=== PATIENT | male | born 1980 | race Caucasian/White ===

== ENCOUNTER 2019-05-01 04:10 | Emergency (ER) | payer SELFPAY ==
[~2019-05-01] VITALS: Ht 170.2 cm; Wt 59.5 kg
[2019-05-01] MEDS ORDERED: LIDOCAINE 1% 10 ML VIAL INJ ONE (05:30)
[2019-05-01] MEDS ORDERED: AZITHROMYCIN 250 MG TABLET PO ONE (05:30)
[2019-05-01] MEDS ORDERED: CefTRIAXone SODIUM 1 GM/VIAL IM ONE ×2 (05:30)
[2019-05-01] MEDS ORDERED: POVIDONE-IODINE 10% 15 ML SOLUTION UD TP ONE (05:30)
[2019-05-01] MEDS ORDERED: LIDOCAINE/PF 1% 2 ML VIAL IM ONE (05:30)
[2019-05-01 06:06] VITALS: BP 112/76
== END 2019-05-01 06:15 | disposition home or self-care (01) ==
LOC: EMS 04:11
DX: L02.414 Cutaneous abscess of left upper limb (principal); L02.415 Cutaneous abscess of right lower limb; N34.2 Other urethritis; F15.90 Other stimulant use, unspecified, uncomplicated; F17.210 Nicotine dependence, cigarettes, uncomplicated
CPT/HCPCS: 10061; 96372; 99284; J0696; J3490 ×2

== ENCOUNTER 2019-07-14 10:15 | Emergency (ER) | payer SELFPAY ==
[~2019-07-14] VITALS: Ht 170.2 cm; Wt 65.9 kg
[2019-07-14] MEDS ORDERED: HYDROCORTISONE 1% 30 GM CREAM TP ONE (11:00)
[2019-07-14] MEDS ORDERED: AZITHROMYCIN 250 MG TABLET PO ONE (11:00)
[2019-07-14] MEDS ORDERED: LIDOCAINE/PF 1% 2 ML VIAL IM ONE (11:00)
[2019-07-14] MEDS ORDERED: CefTRIAXone SODIUM 1 GM/VIAL IM ONE (11:00)
[2019-07-14 11:20] VITALS: BP 127/83
== END 2019-07-14 12:05 | disposition home or self-care (01) ==
LOC: EDUNIT# 10:15 → EMS 10:18
DX: N48.1 Balanitis (principal); N34.2 Other urethritis; F17.210 Nicotine dependence, cigarettes, uncomplicated; F19.90 Other psychoactive substance use, unspecified, uncomplicated
CPT/HCPCS: 96372; 99283; J0696; J3490

== ENCOUNTER 2019-11-19 19:41 | Emergency (ER) | payer SELFPAY ==
[~2019-11-19] VITALS: Ht 175.3 cm; Wt 63.6 kg
[2019-11-19 21:00] VITALS: BP 124/77
== END 2019-11-19 21:57 | disposition home or self-care (01) ==
LOC: EMS 19:50
DX: L02.415 Cutaneous abscess of right lower limb (principal); F15.90 Other stimulant use, unspecified, uncomplicated; F17.210 Nicotine dependence, cigarettes, uncomplicated
CPT/HCPCS: 10060

== ENCOUNTER 2019-12-19 21:01 | Emergency (ER) | payer SELFPAY ==
[~2019-12-19] VITALS: Ht 172.7 cm; Wt 68.2 kg
[2019-12-19] MEDS ORDERED: LIDOCAINE 1% 10 ML VIAL INJ ONE (22:30)
[2019-12-19] MEDS ORDERED: VANCOMYCIN HCL 1 GM/D5% WATER 200 ML IV ONE (22:30)
[2019-12-19 23:18] LABS: BASOPHILS % (AUTO) 0.4 % (0.0-2.0); EOSINOPHILS % (AUTO) 0.4 % (1.0-6.0); HEMATOCRIT 41.8 % (41-53); LYMPHOCYTES # (AUTO) 1.4 K/uL (1.0-4.8); LYMPHOCYTES % (AUTO) 10.4 % (22.0-44.0); MEAN CORPUSCULAR HEMOGLOBIN 30.5 pg (26.0-34.0); MEAN CORPUSCULAR HGB CONC 33.5 G/dL (31.0-37.0); MEAN CORPUSCULAR VOLUME 91 fL (80-100); MONOCYTES # (AUTO) 1.2 K/uL (0.1-1.0); NEUTROPHILS # (AUTO) 10.5 K/uL (1.8-7.7); NEUTROPHILS % (AUTO) 79.8 % (40.0-70.0); PLATELET COUNT (AUTO) 229 K/uL (150-450); RED BLOOD CELL COUNT(AUTO) 4.58 MIL/uL (4.50-5.90); RED CELL DISTRIBUTION WIDTH 13.2 % (11.5-14.5)
[2019-12-19] MEDS ORDERED: IBUPROFEN 600 MG TABLET PO ONE (23:30)
[2019-12-19] MEDS ORDERED: DOXYCYCLINE HYCLATE 100 MG CAPSULE PO ONE (23:30)
[2019-12-19] MEDS ORDERED: ACETAMINOPHEN 500 MG TABLET PO ONE (23:30)
[2019-12-19 23:33] LABS: ANION GAP 7 mmol/L (8-16); CARBON DIOXIDE 29 mmol/L (22-29); CHLORIDE 101 mmol/L (98-107); GLOMERULAR FILTR. RATE CALC > 60 mL/min (>60); GLUCOSE,RANDOM 103 mg/dL (70-110); POTASSIUM 3.3 mmol/L (3.5-5.1); SODIUM SERUM 137 mmol/L (136-145); UREA NITROGEN, BLOOD 9 mg/dL (7-18)
[2019-12-19 23:40] LABS: ALANINE AMINOTRANSFERASE 23 U/L (12-78); ALBUMIN 3.6 g/dL (3.4-5.0); ALKALINE PHOSPHATASE 78 U/L (46-116); ASPARTATE AMINOTRANSFERASE 18 U/L (15-37); BILIRUBIN,TOTAL 0.7 mg/dL (0.1-1.0); TOTAL PROTEIN, SERUM 7.1 g/dL (6.4-8.2)
[2019-12-20 01:49] VITALS: BP 129/60
== END 2019-12-20 02:32 | disposition home or self-care (01) ==
LOC: EMS 21:01
DX: L03.113 Cellulitis of right upper limb (principal); F17.210 Nicotine dependence, cigarettes, uncomplicated; F19.90 Other psychoactive substance use, unspecified, uncomplicated
CPT/HCPCS: 10060; 36415; 80053; 85025; 87040; 87070; 96365; 99284; 99406; J3370; J3490; 87205

== ENCOUNTER 2020-05-16 11:32 | Emergency (ER) | payer MEDICAID ==
[~2020-05-16] VITALS: Ht 182.9 cm; Wt 79.5 kg
[2020-05-16] MEDS ORDERED: AZITHROMYCIN 500 MG TABLET PO ONE (14:15)
[2020-05-16] MEDS ORDERED: PENICILLIN G BENZATHINE LA 2,400,000 UNITS/4 ML SYRINGE IM ONE (14:15)
[2020-05-16] MEDS ORDERED: DOXYCYCLINE HYCLATE 100 MG TABLET PO ONE (14:15)
[2020-05-16 15:48] VITALS: BP 125/70
[2020-05-17 06:08] LABS: RPR QUANT. (TITER) 1:32 (NonRea<1:1)
== END 2020-05-16 15:50 | disposition home or self-care (01) ==
LOC: EMS 11:36
DX: L03.116 Cellulitis of left lower limb (principal); F17.210 Nicotine dependence, cigarettes, uncomplicated; F15.90 Other stimulant use, unspecified, uncomplicated
CPT/HCPCS: 36415; 86592; 86593; 86780; 96372; 99283; J0561

== ENCOUNTER 2020-12-04 10:39 | Emergency (ER) | payer MEDICAID ==
[~2020-12-04] VITALS: Ht 170.2 cm; Wt 56.8 kg
[2020-12-04 13:29] LABS: BASOPHILS % (AUTO) 0.4 % (0.0-2.0); HEMATOCRIT 47.6 % (41-53); HEMOGLOBIN 16.4 g/dL (13.5-17.5); LYMPHOCYTES # (AUTO) 2.5 K/uL (1.0-4.8); LYMPHOCYTES % (AUTO) 31.5 % (22.0-44.0); MEAN CORPUSCULAR HEMOGLOBIN 31.9 pg (26.0-34.0); MEAN CORPUSCULAR HGB CONC 34.4 G/dL (31.0-37.0); MEAN CORPUSCULAR VOLUME 93 fL (80-100); MONOCYTES # (AUTO) 0.9 K/uL (0.1-1.0); MONOCYTES % (AUTO) 11.2 % (2.0-9.0); NEUTROPHILS # (AUTO) 4.4 K/uL (1.8-7.7); NEUTROPHILS % (AUTO) 55.9 % (40.0-70.0); PLATELET COUNT (AUTO) 196 K/uL (150-450); RED BLOOD CELL COUNT(AUTO) 5.14 MIL/uL (4.50-5.90); RED CELL DISTRIBUTION WIDTH 12.9 % (11.5-14.5)
[2020-12-04 13:47] LABS: ANION GAP 10 mmol/L (8-16); CALCIUM, TOTAL 8.8 mg/dL (8.8-10.5); CARBON DIOXIDE 34 mmol/L (22-29); CHLORIDE 99 mmol/L (98-107); CREATININE 0.83 mg/dL (0.60-1.30); GLOMERULAR FILTR. RATE CALC > 60 mL/min (>60); GLUCOSE,RANDOM 78 mg/dL (70-110); POTASSIUM 3.3 mmol/L (3.5-5.1); SODIUM SERUM 143 mmol/L (136-145); UREA NITROGEN, BLOOD 23 mg/dL (7-18)
[2020-12-04 14:13] LABS: ALANINE AMINOTRANSFERASE 30 U/L (12-78); ALBUMIN 4.3 g/dL (3.4-5.0); ALKALINE PHOSPHATASE 58 U/L (46-116); ASPARTATE AMINOTRANSFERASE 37 U/L (15-37); BILIRUBIN,TOTAL 1.2 mg/dL (0.1-1.0); CREATINE KINASE, TOTAL ONLY 658 U/L (39-308); TOTAL PROTEIN, SERUM 7.1 g/dL (6.4-8.2)
[2020-12-04 14:44] LABS: COVID AG,FIA SOURCE NASAL SWAB
[2020-12-04 17:17] VITALS: BP 93/63
== END 2020-12-04 17:19 | disposition home or self-care (01) ==
LOC: EMS 11:55
DX: F32.9 Major depressive disorder, single episode, unspecified (principal); M79.10 Myalgia, unspecified site; R05 Cough; F17.210 Nicotine dependence, cigarettes, uncomplicated; F19.90 Other psychoactive substance use, unspecified, uncomplicated; Z20.822 Contact with and (suspected) exposure to COVID-19
CPT/HCPCS: 36415; 80053; 82550; 85025; 87426; 99283; G0480

== ENCOUNTER 2020-12-24 07:59 | Emergency (ER) | payer MEDICAID ==
[~2020-12-24] VITALS: Ht 170.2 cm; Wt 56.8 kg
[~2020-12-24 07:59] MED LIST: BACTDSB PO
[2020-12-24 09:04] LABS: COVID AG,FIA SOURCE NASOPHARYNGEAL
[2020-12-24 10:34] VITALS: BP 122/71
== END 2020-12-24 10:36 | disposition home or self-care (01) ==
LOC: EMS 08:01
DX: Z20.822 Contact with and (suspected) exposure to COVID-19 (principal); F17.210 Nicotine dependence, cigarettes, uncomplicated; F19.90 Other psychoactive substance use, unspecified, uncomplicated
CPT/HCPCS: 87426; 99283; U0003

== ENCOUNTER 2022-01-01 08:38 | Emergency (ER) | payer MEDICAID ==
[~2022-01-01] VITALS: Ht 177.8 cm; Wt 68.2 kg
[2022-01-01 10:07] VITALS: BP 118/73
[2022-01-01] MEDS ORDERED: DOXY-354 PO (11:46)
== END 2022-01-01 11:55 | disposition home or self-care (01) ==
LOC: EMS 08:38
DX: L02.411 Cutaneous abscess of right axilla (principal); Z86.14 Personal history of Methicillin resistant Staphylococcus aureus infection; Z87.2 Personal history of diseases of the skin and subcutaneous tissue
CPT/HCPCS: 99283; Z7502

== ENCOUNTER 2022-08-06 19:31 | Emergency (ER) | payer MEDICAID ==
[~2022-08-06] VITALS: Ht 170.2 cm; Wt 68.2 kg
[~2022-08-06 19:31] MED LIST changes: +DOXY-354 PO
[2022-08-06 19:33] VITALS: BP 115/71
[2022-08-06 21:41] LABS: COVID AG,FIA SOURCE NASOPHARYNGEAL
[2022-08-06 22:14] LABS: INFLUENZA TYPE A NEGATIVE FOR TYPE A (NEGATIVE); INFLUENZA TYPE B NEGATIVE FOR TYPE B (NEGATIVE)
== END 2022-08-06 22:32 | disposition home or self-care (01) ==
LOC: EMS 19:38
DX: J06.9 Acute upper respiratory infection, unspecified (principal); Z20.822 Contact with and (suspected) exposure to COVID-19
CPT/HCPCS: 87804; 99283

== ENCOUNTER 2022-08-13 20:47 | Emergency (ER) | payer MEDICAID ==
[~2022-08-13] VITALS: Ht 182.9 cm; Wt 180.0 kg
[2022-08-13 21:27] VITALS: BP 126/80
[2022-08-13] MEDS ORDERED: DOXY-354 PO (21:33)
[2022-08-13] MEDS ORDERED: DOXYCYCLINE HYCLATE 100 MG TABLET PO ONE (21:45)
== END 2022-08-13 22:17 | disposition home or self-care (01) ==
LOC: EMS 20:47
DX: L03.012 Cellulitis of left finger (principal)
CPT/HCPCS: 99283

== ENCOUNTER 2023-03-24 14:11 | Emergency (ER) | payer SELFPAY ==
[~2023-03-24] VITALS: Ht 175.3 cm; Wt 75.0 kg
[~2023-03-24 14:11] MED LIST changes: -BACTDSB PO
[2023-03-24 14:22] VITALS: BP 119/59; PULSE 88; RESP 18; TEMP 98
[2023-03-24] MEDS ORDERED: IBUP-1554 PO (17:19)
[2023-03-24] MEDS ORDERED: CEPH-558 PO (17:19)
[2023-03-24] MEDS ORDERED: DOXY-354 PO (17:19)
[2023-03-24] MEDS ORDERED: LIDOCAINE 1% 10 ML VIAL SQ ONE (17:30)
== END 2023-03-24 17:34 | disposition home or self-care (01) ==
LOC: EMS 14:15
DX: L02.411 Cutaneous abscess of right axilla (principal); L02.92 Furuncle, unspecified
CPT/HCPCS: 10060; 99283